=== PATIENT | female | born 1995 | race Caucasian/White ===

== ENCOUNTER 2024-03-22 07:20 | Inpatient (IN) | payer OTHER ==
[~2024-03-22] VITALS: Ht 157.5 cm; Wt 70.9 kg
[2024-03-22] VITALS (26 sets, daily range): BP systolic 85–136; BP diastolic 54–84; PULSE 60–95; TEMP 97.5–98
[2024-03-22] MEDS ORDERED: Penicillin G Potassium 2,500,000 UNITS in NS 100 ML IV SCH (15:30)
[2024-03-22] MEDS ORDERED: Penicillin G Potassium 5,000,000 UNITS in NS 100 ML IV ONE (15:30)
[2024-03-22] MEDS ORDERED: LR 1,000 ML IV SCH (15:30)
[2024-03-22] MEDS ORDERED: LR & Oxytocin 500 ML IV SCH (15:30)
--- NOTE | 2024-03-22 15:32 | NUR ---
PATIENT AND SPOUSE AMBULATORY TO UNIT. PATIENT ORIENTED TO LABOR ROOM 6 AND ASSISTED INTO A GOWN. PATIENT DENIES CONTRACTIONS, LEKAING OF FLUID OR VAGINAL BLEEDING, AND REPORTS GOOD MOVEMENT. EFM AND TOCO PLACED AND TRACING. ASSESSMENTS COMPLETE, CONSENTS SIGNED.
[2024-03-22] MEDS ORDERED: PRENATAL (15:49)
[2024-03-22] MEDS ORDERED: PRILOSEC10 MG PO (15:49)
[2024-03-22 16:31] LABS: BASO % 0.3 % (0.0-2.0); EOS # 0.1 K/mm3 (0.0-0.7); EOS % 1.1 % (0.0-4.0); GRAN # 7.2 K/mm3 (1.4-6.5); GRAN % 69.8 % (42.2-75.2); HEMATOCRIT 37.9 % (37.0-47.0); HEMOGLOBIN 12.6 g/dl (12.5-16.0); LYMPH # 2.2 K/mm3 (1.2-3.4); LYMPH % 21.4 % (20.0-51.0); MEAN CELL VOLUME 94 fl (80.0-100.0); MEAN CORPUSCULAR HEMOGLOBIN 31 pg (27-31); MEAN CORPUSCULAR HGB CONC 33 g/dl (33.0-37.0); MEAN PLATELET VOLUME 10.1 fl (7.4-10.4); MONO # 0.7 K/mm3 (0.1-0.6); MONO % 6.7 % (1.7-9.3); PLATELET COUNT 230 K/mm3 (130-400); RED BLOOD COUNT 4.03 M/mm3 (4.10-5.30); REDCELL DISTRIBUTION WIDTH-CV 13.9 % (11.5-14.5)
[2024-03-22] MEDS ORDERED: diphenhydrAMINE 25 MG CAP PO PRN (17:45)
[2024-03-22] MEDS ORDERED: diphenhydrAMINE 50 MG/ML 1 ML VIAL IV PRN (17:45)
[2024-03-22] MEDS ORDERED: ePHEDrine 50 MG/10 ML VIAL IV PRN (17:45)
[2024-03-22] MEDS ORDERED: Ondansetron 4 MG/2 ML VIAL IV PRN (17:45)
[2024-03-22] MEDS ORDERED: Naloxone 0.4 MG/ML VIAL IV PRN ×2 (17:45→23:45)
[2024-03-22] MEDS ORDERED: ROPivacaine PF 0.2% 200 ML IV ONE (19:54)
--- NOTE | 2024-03-22 20:00 | NUR ---
1908- PT CALLS OUT AND REQUESTS TO USE THE BATHROOM, STATES THAT HER CONTRACTIONS ARE MORE INTENSE SINCE AROM. FOLLOWING USING THE BATHROOM PT STATES SHE WOULD LIKE TO USE THE BIRTHING BALL. 1916- DUE TO INCREASED PAIN WITH CONTRACTIONS SVE WAS OFFERED BY THIS NURSE, PT AGREES. SVE OF 4/80/-2 WITH BLOODY SHOW. PT REQUESTS EPIDURAL. 1919- Maria T ALVARES CRNA NOTIFIED OF PT REQUESTS, ON HIS WAY FOR PLACEMENT. LR BOLUS STARTED. PT STANDING AT BEDSIDE WITH SUPPORT OF SPOUSE. 1920- PITOCIN DECREASED FROM 16MU TO 14MU DUE TO TACHYSYSTOLE AND RECURRENT LATE DECELS. 1923- PITOCIN DECREASED FROM 14MU TO 10MU DUE TO CONTINUED TACHYSYSTOLE AND LATE DECELS. PT CONTINUES TO STAND AT BEDSIDE WITH SUPPORT OF HER SPOUSE PER HER REQUEST. 1926- PT REPOSITIONED TO HANDS AND KNEES IN THE BED. THIS NURSE REMAINS AT BEDSIDE HOLDING US IN PLACE. 1933- LATE DECELS RESOLVE WITH POSITION CHANGE, PT REQUESTS TO TURN TO LEFT LATERAL. ASSISTED TO NEW POSITION. PEANUT BALL PLACED BETWEEN KNEES. 1935- PITOCIN OFF DUE TO PT STATING THAT SHE FEELS LIKE THERE IS NO BREAK BETWEEN CONTRACTIONS. 1940- Maria T ALVARES CRNA IN ROOM FOR EPIDURAL PLACEMENT. PT SITTING AT BEDSIDE FOR EPIDURAL PLACEMENT. BP CUFF SET TO EVERY 5 MIN[address]ES AND [address]SE OX IN PLACE. 1946- SINGLE SHOT PLACED BY Maria T ALVARES CRNA. PT TOLERATED WELL. 1948- PITOCIN RESTARTED AT 2MU. 2001- FERNANDEZ PLACED, SVE PERFORMED, 4-5/80/-2. PT REPOSITIONED TO SEMIFOWLERS.
[2024-03-22] MEDS ORDERED: traZODone 50 MG TAB PO PRN (21:00)
--- NOTE | 2024-03-22 23:40 | NUR ---
2300- SVE OF COMPLETE/+2 230- DR GARNER NOTIFIED OF IMPENDING DELIVERY, ON HER WAY TO THE HOSPITAL FOR DELIVERY. 2310- FERNANDEZ DCd, 600MLS URINE OUT. 2311- PT BEGINS PUSHING WITH THIS NURSE. 2318- DR. GARNER IN ROOM FOR DELIVERY. BED BROKEN DOWN FOR DELIVERY. 2326- SPONTANEOUS VAGINAL DELIVERY OF VIABLE BABY BOY. BABY TO MOTHER CHEST, DRIED AND STIMULATED, SPONTANEOUS CRY NOTED. BABY CARES ASSUMED BY Franklin GERMAIN RN. 2332- SPONTANEOUS DELIVERY OF INTACT PLACENTA OVER INTACT PERINEUM. PITOCIN STARTED AT 333ML/HR PER PROTOCOL. DR. GARNER CONFIRMS DELIVERY OF INTACT PLACENTA DUE TO ACCESSORY LOBE, 3 LOBES NOTED. 2340- RECOVERY STARTED.
[2024-03-22] MEDS ORDERED: Phenylephrine/Mineral Oil/Petrolatum 57 GM TUBE RC PRN (23:45)
[2024-03-22] MEDS ORDERED: Magnes Hydrox (MOM) 80 MG/ML 30 ML CUP PO PRN (23:45)
[2024-03-22] MEDS ORDERED: Witch Hazel 50% Pads Bulk TUB TP PRN (23:45)
[2024-03-22] MEDS ORDERED: Loratadine 10 MG TAB PO PRN (23:45)
[2024-03-22] MEDS ORDERED: Mag/Al Hydrox/Simeth Susp 30 ML CUP PO PRN (23:45)
[2024-03-22] MEDS ORDERED: oxyCODONE 5 MG TAB PO PRN (23:45)
[2024-03-22] MEDS ORDERED: Measles/Mumps/Rubella Virus Vaccine Live w Diluent 0.5 ML VIAL SQ SCH (23:45)
[2024-03-23] VITALS (11 sets, daily range): BP systolic 102–135; BP diastolic 60–90; PULSE 60–88; TEMP 97.7–98
[2024-03-23] MEDS ORDERED: Ibuprofen 800 MG TAB PO SCH
[2024-03-23] MEDS ORDERED: Acetaminophen 500 MG TAB PO SCH
[2024-03-23] MEDS ORDERED: Sennosides/Docusate 8.6-50 MG TAB PO SCH (08:00)
--- NOTE | 2024-03-23 12:24 | NUR ---
Data: Patient accepted Spiritual Care visit offered during [employer] rounds. Family arrived, bringing Patient's older child with them. [employer] Development Manager left so that family could have the time and space for visiting and taking videos. Assessment: Patient stated she feels "very good." Plan of Care: Chaplains will remain available as needed/requested while Patient is admitted to this hospital.
[2024-03-24 08:00] VITALS: BP 112/80; PULSE 72; TEMP 98.1
== END 2024-03-24 12:00 | disposition home or self-care (01) | DRG 807 ==
LOC: OB 07:20 → LDR 15:25 → OB 03-23 02:40
PROVIDERS: ADMIT Student in an Organized Health Care Education/Training Program
PROC: 10E0XZZ Delivery of Products of Conception, External Approach (ICD-10-PCS; principal; 2024-03-22)
PROC: 10907ZC Drainage of Amniotic Fluid, Therapeutic from Products of Conception, Via Natural or Artificial Opening (ICD-10-PCS; 2024-03-22)
PROC: 3E033VJ Introduction of Other Hormone into Peripheral Vein, Percutaneous Approach (ICD-10-PCS; 2024-03-22)
DX: O99.824 Streptococcus B carrier state complicating childbirth (principal); Z37.0 Single live birth; Z3A.39 39 weeks gestation of pregnancy; O76 Abnormality in fetal heart rate and rhythm complicating labor and delivery; O43.893 Other placental disorders, third trimester; G90.A Postural orthostatic tachycardia syndrome [POTS]; O99.892 Other specified diseases and conditions complicating childbirth; E74.39 Other disorders of intestinal carbohydrate absorption; O99.284 Endocrine, nutritional and metabolic diseases complicating childbirth; O69.81X0 Labor and delivery complicated by cord around neck, without compression, not applicable or unspecified; O71.82 Other specified trauma to perineum and vulva; Z23 Encounter for immunization
CPT/HCPCS: J2540; J2590; J2795; J7120